=== PATIENT | female | born 1965 ===

== ENCOUNTER 2016-10-14 07:48 | Day surgery (SDC) | payer MEDICAID ==
[2016-10-14 08:17] VITALS: BMI 26.5
[2016-10-14] MEDS ORDERED: Lidocaine 2% Jelly (Uro-Jet) ONE (11:37)
[2016-10-14] MEDS ORDERED: cefTRIAXone (Rocephin) 1 gm Inj ONE (11:37)
[2016-10-14] MEDS ORDERED: Iohexol 300 100 ML IJ ONE (11:38)
[2016-10-14] MEDS ORDERED: Chlorhexidine Gluconate 2OZ GEL TP ONE (11:38)
[2016-10-14 12:33] VITALS: BP 121/62; PULSE 80; RESP 18; TEMP 99; O2SAT 99
--- NOTE | 2016-10-14 13:53 | RAD ---
PROCEDURE: Intraoperative Fluoroscopy. HISTORY: CYSTO FINDINGS: Fluoroscopic assistance was provided for cystoscopy and retrograde.. fluoroscopic time (continuous mode) utilized during the procedure: 0.2 minutes.
--- NOTE | 2016-10-14 23:29 | OP ---
PROCEDURE DATE: 10/14/2016 PREOPERATIVE DIAGNOSIS: Mixed urinary incontinence. POSTOPERATIVE DIAGNOSIS: Mixed urinary incontinence. PROCEDURE PERFORMED: Cystogram. DESCRIPTION OF PROCEDURE: With the patient on the operating room table in a supine position, a #16 2-way Milian catheter was inserted. The bladder was emptied and then cystography material was injected into the bladder until the point at which the patient felt significant distention. At that point, the catheter was clamped. The patient was asked cough and Valsalva. In both incidences, there were noted to be a positive 1 hypermobility of the bladder neck. Following this, the catheter was removed. The patient was asked to cough and she developed positive 1 Arthur test. Once this information then was identified, the patient was asked to go void. She came back. A residual urine of less than 10 mL was recovered. Once this information was gathered, the patient was explained the procedure and she was then taken from the operating room in good condition. Laura Cedeno MD
== END 2016-10-14 12:47 | disposition home or self-care (01) ==
LOC: H.OPSURG 07:48 → EDSEX 10:00 → H.OPSURG 12:47
PROVIDERS: ATTEND Urology
DX: N39.46 Mixed incontinence (principal); N32.89 Other specified disorders of bladder; Z90.49 Acquired absence of other specified parts of digestive tract